=== PATIENT | male | born 1980 | race Hispanic/Latino ===

== ENCOUNTER 2020-09-30 12:14 | Emergency (ER) | payer OTHER ==
[2020-09-30 12:33] VITALS: BP 126/93
[2020-09-30] MEDS ORDERED: IBUPROFEN 800 MG TAB PO ONE (13:35)
--- NOTE | 2020-09-30 13:45 | Emergency Department Report ---
ED Lower Extremity HPI - General Chief Complaint: Extremity Injury, Lower Stated Complaint: LEFT ANKLE INJURY/WORK RELATED Time Seen by Provider: 09/30/20 13:32 Source: patient Mode of arrival: Ambulatory Limitations: No Limitations - History of Present Illness Initial Comments: 40-year-old male presented to the ER today with complaints of left ankle pain. Onset 11 AM this morning. Location at work. patient states that he accidentally stepped off an 8 inch platform. When he stepped off the platform his ankle rolled causing him to fall. He denies any head injury. He complains mainly of pain diffusely to his left ankle. He reports swelling to the ankle. He states that the ankle pain is worse with movement of the ankle, weightbearing and ambulation. He denies any prior issues with the ankle. He has not taken anything for pain. He reports no other symptoms at this time MD Complaint: ankle injury -: Sudden (today at 11am ) - Related Data Previous Rx's Medication Instructions Recorded Last Taken Type Ibuprofen [Motrin] 800 mg PO Q8HR PRN #30 tablet 09/30/20 Unknown Rx ED Review of Systems ROS: Stated complaint: LEFT ANKLE INJURY/WORK RELATED Other details as noted in HPI Comment: All other systems reviewed and negative Musculoskeletal: joint swelling, arthralgia ED Past Medical Hx - Past Medical History Additional medical history: Mild Traumatic Brain Injury - Surgical History Past Surgical History?: No - Medications Home Medications: Home Medications Medication Instructions Recorded Confirmed Last Taken Type Ibuprofen [Motrin] 800 mg PO Q8HR PRN #30 tablet 09/30/20 Unknown Rx ED Physical Exam - General Limitations: No Limitations General appearance: alert, in no apparent distress - Head Head exam: Present: atraumatic, normocephalic, normal inspection - Expanded Lower Extremity Exam Left Ankle exam: Present: normal inspection, tenderness (Mild, mainly to the anterior left ankle and also lateral left ankle), swelling (Mild swelling noted to the lateral left ankle). Absent: full ROM (Range of motion of the left ankle mildly reduced due to pain), abrasion, laceration, ecchymosis, deformity, crepidus, dislocation, erythema Foot/Toe exam: Present: normal inspection, tenderness (Mild tenderness at the base of the fifth metatarsal bone), tenderness at base of 5th metatarsal. Absent: swelling, abrasion, laceration, ecchymosis, deformity, crepidus, d islocation, erythema, amputation, puncture wound, foreign body, calcaneal tenderness, nail avulsion, subungual hematoma Neuro vascular tendon exam: Present: no vascular compromise Gait: Positive: observed and limited by pain - Neurological Exam Neurological exam: Present: alert, oriented X3, CN II-XII intact, other (Mild limping gait secondary to ankle pain) - Psychiatric Psychiatric exam: Present: normal affect, normal mood, anxious ED Course Vital Signs 09/30/20 09/30/20 12:32 14:45 Temperature 98.1 F Pulse Rate 75 Respiratory 16 18 Rate Blood Pressure 126/93 O2 Sat by Pulse 97 Oximetry ED Lower Extremity MDM - Radiology Data Radiology results: report reviewed Patient: LEXI PAEZ MR#: [id number] 31 : 1980 Acct:[id number] Age/Sex: 40 / M ADM Date: 09/30/20 Loc: ED Attending Dr: Ordering Physician: RAINER CORTEZ Date of Service: 09/30/20 Procedure(s): XR ankle 3+V LT Accession Number(s): [id number] cc: RAINER CORTEZ Fluoro Time In Minutes: Left ankle-3 views INDICATION: Left ankle pain/left ankle injury. COMPARISON: None. IMPRESSION: No acute osseous abnormality. Soft tissues are normal. Normal alignment. No significant DJD. Signer Name: Bg Yeager MD Signed: 09/30/2020 2:19 PM Workstation Name: [id number] Transcribed By: JW Dictated By: Bg Yeager MD Electronically Authenticated By: Bg Yeager MD Signed Date/Time: 09/30/20 1419 DD/ 1416 TD/TT: Patient: LEXI PAEZ MR#: [id number] [birth year] : 1980 Acct:[id number] Age/Sex: 40 / M ADM Date: 09/30/20 Loc: ED Attending Dr: Ordering Physician: RAINER CORTEZ Date of Service: 09/30/20 Procedure(s): XR foot 3+V LT Accession Number(s): [id number] cc: RAINER J. DIEGO Fluoro Time In Minutes: LEFT FOOT 3 VIEWS INDICATION / CLINICAL INFORMATION: Pain along the base of the left fifth metatarsal. Left foot injury. COMPARISON: None available. FINDINGS: BONES and JOINT(S): No acute fracture or subluxation. No significant arthritis. SOFT TISSUES: No significant abnormality. ADDITIONAL FINDINGS: None. IMPRESSION: 1. No acute findings. Signer Name: Dannie Bailey MD Signed: 09/30/2020 3:06 PM Workstation Name: [id number] Transcribed By: DINAH Dictated By: Dannie Bailey MD Electronically Authenticated By: Dannie Bailey MD Signed Date/Time: 09/30/20 1506 DD/ 1505 TD/TT: Critical care attestation.: If time is entered above; I have spent that time in minutes in the direct care of this critically ill patient, excluding procedure time. ED Disposition Clinical Impression: Ankle sprain, Foot sprain Disposition: TO HOME OR SELFCARE Is pt being admited?: No Does the pt Need Aspirin: No Condition: Stable Instructions: Ankle Sprain, [id number], Foot Sprain Additional Instructions: Rest, ice and elevate your foot for the next 2 to 3 days. Use ankle air splint and crutches as discussed. Take the Motrin as prescribed for pain. If your symptoms continue for another 1 to 2 weeks follow-up with the orthopedic tech on your discharge instructions. Return to the ER if any symptoms changes or worsens in any way. Prescriptions: Ibuprofen [Motrin] 800 mg PO Q8HR PRN #30 tablet PRN Reason: Pain Referrals: PRIMARY CAREMD [Primary Care Provider] - 3-5 Days Forms: Work/School Release Form(ED) Time of Disposition: 15:23
--- NOTE | 2020-09-30 14:23 | XRay Report ---
Left ankle-3 views INDICATION: Left ankle pain/left ankle injury. COMPARISON: None. IMPRESSION: No acute osseous abnormality. Soft tissues are normal. Normal alignment. No significa nt DJD. Signer Name: Bg Yeager MD Signed: 09/30/2020 2:19 PM Workstation Name: [id number]
--- NOTE | 2020-09-30 15:10 | XRay Report ---
LEFT FOOT 3 VIEWS INDICATION / CLINICAL INFORMATION: Pain along the base of the left fifth metatarsal. Left foot injury. COMPARISON: None available. FINDINGS: BONES and JOINT(S): No acute fracture or subluxation. No significant arthritis. SOFT TISSUES: No significant abnormality. ADDITIONAL FINDINGS: None. IMPRESSION: 1. No acute findings. Signer Name: Dannie Bailey MD Signed: 09/30/2020 3:06 PM Workstation Name: [id number]
== END 2020-09-30 15:41 | disposition home or self-care (01) ==
LOC: ED 12:14
DX: S93.401A Sprain of unspecified ligament of right ankle, initial encounter (principal); Z79.1 Long term (current) use of non-steroidal anti-inflammatories (NSAID); W22.8XXA Striking against or struck by other objects, initial encounter; Y93.89 Activity, other specified; Y92.89 Other specified places as the place of occurrence of the external cause; Y99.8 Other external cause status